=== PATIENT | female | born 1970 | race Caucasian/White ===

== ENCOUNTER 2021-11-13 18:01 | Emergency (ER) | payer MEDICAID, SELFPAY ==
[2021-11-13 18:02] VITALS: BP 199/107; PULSE 91; RESP 16; TEMP 37; O2SAT 96
[2021-11-13 19:15] VITALS: BP 172/88; PULSE 77; RESP 15; O2SAT 92
--- NOTE | 2021-11-13 19:16 | EX.ED.DYSGE1 ---
HPI History of Present Illness Chief Complaint: Ear Problem Detail of Chief Complaint: Patient believes that her work has put tracking devices in her inner ear. Informant: patient Onset/Context/Timing Context: Gradual Onset Timing: Intermittent Current Severity: Mild Maximum Severity: Mild Narrative Narrative: 51-year-old female no stated past medical history. Currently on no medications. Patient believes that years ago her workplace placed something into her inner year to track her. She says her and her family have been harassed in [place]. She is following up with her doctor and also her 18-year-old daughter's doctor and said he has had no results. 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 They live in [place]. She came down here tonight because she said she is not getting any results in [place]. She denies any other complaints. Prior similar symptoms: Yes Recent Illness/Hospitalization: No PFSH PFSH Medical History no medical history no medical history Social History Smoking Status: Former smoker ROS ROS ED ROS Narrative Paranoia Review of Systems ROS Unobtainable: Denies due to encephalopathy Constitutional Constitutional ED: Denies chills Eyes Eyes: Denies blurry vision ENT ENT ED: Denies ear pain Cardiovascular Cardiovascular: Denies chest pain Respiratory/Chest Respiratory/Chest: Denies cough Gastrointestinal Gastrointestinal: Denies abdominal pain Genitourinary Genitourinary ED: Denies dysuria Musculoskeletal Musculoskeletal: Denies arthralgias Integumentary Denies abscess Neurologic Neurologic: Denies headache(s) Psychiatric Psychiatric: Denies anxiety Endocrine Endocrinology: Denies cold intolerance Hematologic/Lymphatic Hematologic/Lymphatic: Reports none Allergic/Immunologic Allergic/Immunologic ED: Denies mouth swelling or tongue swelling EXAM Physical Exam Narrative Exam Narrative: 49-year-old female no acute distress. Vital signs stable afebrile. Initial blood pressure is elevated at 199/107. HEENT exam normal. Neck nontender. TMs are normal bilaterally. Lungs clear. Heart regular rhythm. Abdomen soft nontender. 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 Normal dorsi plantar flexion. No edema. Back nontender. Neurologic exam normal. Const Vital Signs: 11/13/21 18:02 Temperature 98.6 F Temperature Source Temporal Pulse Rate 91 Respiratory Rate 16 Blood Pressure 199/107 H Blood Pressure Mean 137 Pulse Ox 96 Oxygen Delivery Method Room Air Positive well nourished and well developed; Negative for cachectic, contractures or unkempt General Appearance ED: well developed; Negative for unkempt, cachectic or contractures Nutritional Appearance: Negative for cachectic HEENT Reports TM's clear and moist mucous membranes Negative for trauma Tympanic Membrane ED: Yes TM's clear Eyes PERRL and EOMs intact bilaterally General Eye ED: Negative for pale conjunctiva or scleral icterus Neck no lymphadenopathy, supple and no JVD General: Negative for tenderness Chest Wall inspection of chest normal and palpation of chest normal Chest: Negative for other Resp normal respiratory effort and clear to auscultation bilaterally Effort and Inspection: Negative for retractions Auscultation: Negative for rales, rhonchi or wheezes Cardio regular rhythm, S1 normal heart sound, S2 normal heart sound and no murmurs Rate: Negative for bradycardia Rhythm: Negative for abnormal rhythm GI normal to inspection, nondistended, normoactive bowel sounds, non-tender, non-distended and no masses Inspection: Negative for abdominal distention Auscultation: normoactive bowel sounds Palpation: soft; Negative for tender or guarding Back/Spine no CVA tenderness General Back: Negative for CVA tenderness Cervical Spine: Negative for cervical spine tenderness Thoracic Spine / Upper Back: Negative for thoracic spinal tenderness Lumbar Spine / Lower Back: Negative for lumbar spinal tenderness Extremity normal to inspection Psych mental status grossly normal Psych Narrative: . Weight. Appearance: Negative for unkempt Attitude: No agitated Mood & Affect: Negative for depressed or anxious Skin no rashes or lesions noted, no wounds and skin turgor normal Rashes: No rashes noted Trauma: Negative for abrasion Wounds: Negative for wounds noted MDM MDM MDM Narrative Medical decision making narrative: 51-year-old female normal exam. With paranoid delusions of someone putting tracking devices in her and her daughter and harassing their family. She is not suicidal or homicidal. I explained to her there is no further work-up I need to do in the emergency department. This could not be verified. She should follow-up with her primary care physician. She does not believe is related to any type of mental illness. Discharge Plan Triage Chief Complaint: Ear Problem Other Complaint: Eye Problem ED Provider: Anselmo Montenegro Dx/Rx/DC Orders Clinical Impression: Paranoia Primary Care Provider: NOT,DEFINED Referrals: NOT,DEFINED [Primary Care Provider] - Activity Restrictions/Additional Instructions: Follow-up with your primary care physician. Follow-up with the ENT exam you have scheduled. Disposition Disposition: Home, Self Care
== END 2021-11-13 19:36 | disposition home or self-care (01) ==
PROVIDERS: Emergency Provider Emergency Medicine; Visit Provider Emergency Medicine
DX: F22 Delusional disorders (principal); Z87.891 Personal history of nicotine dependence
CPT/HCPCS: 99282